=== PATIENT | male | born 1995 | race Two or more races ===

== ENCOUNTER 2025-06-29 21:02 | Emergency (ER) | payer SELFPAY ==
[~2025-06-29] VITALS: Ht 167.6 cm; Wt 68.0 kg
[2025-06-29 21:09] VITALS: BP 154/100; TEMP 98.3
[2025-06-29 21:35] VITALS: O2SAT 98
== END 2025-06-29 21:44 | disposition home or self-care (01) ==
LOC: ER 21:40
DX: F10.129 Alcohol abuse with intoxication, unspecified (principal); Z79.899 Other long term (current) drug therapy; Y90.9 Presence of alcohol in blood, level not specified
CPT/HCPCS: 82962-TC